=== PATIENT | male | born 1960 ===

== ENCOUNTER 2017-07-20 06:34 | Emergency (ER) | payer BC ==
[2017-07-20 06:34] VITALS: BMI 26.6
[2017-07-20] MEDS ORDERED: Sodium Chloride 0.9% 1,000 ML IV ONE (07:37)
[2017-07-20] MEDS: Albuterol 0.083% Inhal Sol (2.5 mg/3 mL) UD INH SCH ×2 (07:50→08:05)
[2017-07-20] MEDS ORDERED: Albuterol 0.083% Inhal Sol (2.5 mg/3 mL) UD ONE (07:55)
--- NOTE | 2017-07-20 07:58 | C.PDOC ---
History Of Present Illness 56 yr old male presents to the ER with complaints of cough, runny nose, lack of appetite, headache and sweating for the past 5 days. Patient states his abdomen is sore from coughing. Otherwise denies fever, chest pain, SOB, nausea, vomiting , abdominal pain or neck pain. Time Seen by Provider: 07/20/17 07:19 Chief Complaint (Nursing): Cough, Cold, Congestion History Per: Patient History/Exam Limitations: no limitations Onset/Duration Of Symptoms: Days (5) Past Medical History Reviewed: Historical Data, Nursing Documentation, Vital Signs Vital Signs: Last Vital Signs Temp 97.8 F 07/20/17 06:42 Pulse 78 07/20/17 06:42 Resp 20 07/20/17 06:42 BP 147/99 H 07/20/17 06:42 Pulse Ox 97 07/20/17 08:03 - Medical History PMH: Depression Family History: States: No Known Family Hx - Social History Hx Tobacco Use: No Hx Alcohol Use: No Hx Substance Use: No - Immunization History Hx Tetanus Toxoid Vaccination: No Hx Influenza Vaccination: No Hx Pneumococcal Vaccination: No Review Of Systems Except As Marked, All Systems Reviewed And Found Negative. Constitutional: Positive for: Sweats, Other (Lack of appetite). Negative for: Fever ENT: Positive for: Nose Discharge (Runny nose) Cardiovascular: Negative for: Chest Pain Respiratory: Positive for: Cough. Negative for: Shortness of Breath Gastrointestinal: Negative for: Nausea, Vomiting, Abdominal Pain Musculoskeletal: Negative for: Neck Pain Neurological: Positive for: Headache Physical Exam - Physical Exam Appears: Non-toxic, No Acute Distress Skin: Warm, Dry, No Rash Head: Atraumatic, Normacephalic Eye(s): bilateral: Normal Inspection, PERRL, EOMI Oral Mucosa: Moist Neck: Normal, Normal ROM, Supple Respiratory: No Rales, No Rhonchi, No Stridor, Wheezing (Bilateral) Gastrointestinal/Abdominal: Normal Exam, Soft, No Tenderness, No Guarding, No Rebound Extremity: Normal ROM, No Swelling Neurological/Psych: Oriented x3, Normal Speech, Normal Motor ED Course And Treatment O2 Sat by Pulse Oximetry: 97 (RA) Pulse Ox Interpretation: Normal Medical Decision Making Medical Decision Making: PLAN: * CXR * Influenza * Albuterol INH * Claritin PO * Motrin PO * Prednisone PO * Sodium Chloride IV Patient feeling much better, requesting D/C and a note for work. Disposition Counseled Patient/Family Regarding: Studies Performed, Diagnosis, Rx Given - Disposition Referrals: [facility] [Outside] Disposition: HOME/ ROUTINE Disposition Time: 08:43 Condition: STABLE Prescriptions: Albuterol HFA [Ventolin HFA 90 mcg/actuation (8 g)] 2 puff IH [id number] #1 unit Ibuprofen [Motrin] 600 mg PO TID #15 tab Loratadine/Pseudoephedrine [Claritin-D 24 Hour Tablet] 1 each PO DAILY #5 tab.er.24h Instructions: Acute Bronchitis (ED) Forms: Work Excuse, Gen Discharge Inst [place] [employer] [facility] ([place]) - POA Present On Arrival: None - Clinical Impression Clinical Impression: Influenza-like illness, Bronchitis - Scribe Statement The provider has reviewed the documentation as recorded by the Rosaibkale Kilgore Provider Attestation: All medical record entries made by the [place] were at my direction and personally dictated by me. I have reviewed the chart and agree that the record accurately reflects my personal performance of the history, physical exam, medical decision making, and the department course for this patient. I have also personally directed, reviewed, and agree with the discharge instructions and disposition.
--- NOTE | 2017-07-20 09:00 | RAD ---
HISTORY: Shortness of breath COMPARISON: 08/06/2013 TECHNIQUE: Chest PA and lateral FINDINGS: LUNGS: Biapical pleural thickening. No focal infiltrate or effusion. PLEURA: No significant pleural effusion identified. No pneumothorax apparent. CARDIOVASCULAR: Normal. OSSEOUS STRUCTURES: No significant abnormalities. VISUALIZED UPPER ABDOMEN: Normal. OTHER FINDINGS: None. IMPRESSION: No active disease.
[2017-07-20 09:04] VITALS: BP 132/86; PULSE 91; RESP 18; TEMP 99; O2SAT 96
== END 2017-07-20 09:03 | disposition home or self-care (01) ==
LOC: C.ER 06:34
DX: J11.1 Influenza due to unidentified influenza virus with other respiratory manifestations (principal); J40 Bronchitis, not specified as acute or chronic